=== PATIENT | female | born 1970 | race Two or more races ===

== ENCOUNTER 2024-03-14 14:37 | Emergency (ER) | payer OTHER ==
[~2024-03-14] VITALS: Ht 152.4 cm; Wt 71.2 kg
[~2024-03-14 14:37] MED LIST: IPRAT-ALBUT 0.5-3 ML IH; PROVENTIL3 ML/2.5 M IH; TUSNEL LIQUID178 ML PO
[2024-03-14 17:01] LABS: HEMATOCRIT 35.6 % (36.0-45.00); HEMOGLOBIN 12.6 g/dL (12.0-15.00); MEAN CELL VOLUME 89.9 fL (80.00-100.00); MEAN CORPUSCULAR HEMOGLOBIN 31.9 pg (27.00-32.0); MEAN CORPUSCULAR HGB CONC 35.5 g/dl (32.0-36.0); PLATELET COUNT 244 K/uL (150-450); RED BLOOD COUNT 3.96 M/uL (4.00-6.00); RED CELL DISTRIBUTION WIDTH 14.5 % (11.5-14.5)
[2024-03-14 17:39] LABS: PH,URINE 6.5 (5.0-8.0); URINE APPEARANCE Clear; URINE BILIRRUBIN Negative (NEGATIVE); URINE BLOOD Negative; URINE COLOR Yellow; URINE GLUCOSE Negative (NEGATIVE); URINE KETONE Negative (NEGATIVE); URINE LEUKOCYTE Small; URINE NITRATE Negative; URINE PROTEIN Negative (NEGATIVE); URINE UROBILINOGEN 0.2 E.U./dl
[2024-03-14 17:42] LABS: URINE EPITHELIAL CELLS 6.6 uL (0.0-38.8); URINE RBC 5.6 uL (0.0-20.8)
[2024-03-14 17:50] LABS: BILIRUBIN TOTAL 0.31 mg/dL (0.3-1.2); CALCIUM 9.5 mg/dL (8.5-10.1); CREATININE SERUM 0.8 mg/dL (0.55-1.02); GFR 75.32; GLOBULINA 3.8 G/DL (2.4-3.5); POTASSIUM 3.92 mEq/L (3.5-5.1); TOTAL PROTEIN 7.8 gm/dL (6.4-8.2)
[2024-03-14 18:57] LABS: URINE BACTERIA 1.2 uL (0.0-1933)
[2024-03-14] MEDS ORDERED: DEXAMETHASONE SODIUM PHOSPHATE 4 MG/ML VIAL IM STA (19:23)
[2024-03-14] MEDS ORDERED: ORPHENADRINE CITRATE 30 MG/ML AMPUL IM STA (19:24)
== END 2024-03-15 00:30 | disposition home or self-care (01) ==
LOC: ER 14:39
DX: R10.9 Unspecified abdominal pain (principal); Z88.6 Allergy status to analgesic agent; N83.291 Other ovarian cyst, right side

== ENCOUNTER 2024-11-30 08:35 | Emergency (ER) | payer OTHER ==
[~2024-11-30] VITALS: Ht 152.4 cm; Wt 66.2 kg
[2024-11-30] MEDS ORDERED: ORPHENADRINE CITRATE 30 MG/ML AMPUL IM STA (09:18)
[2024-11-30] MEDS ORDERED: DEXAMETHASONE SODIUM PHOSPHATE 4 MG/ML VIAL IM STA (09:19)
== END 2024-11-30 09:31 | disposition home or self-care (01) ==
LOC: ER 08:43
DX: M62.830 Muscle spasm of back (principal); Z88.6 Allergy status to analgesic agent